=== PATIENT | male | born 1985 | race American Indian/Alaskan Native ===

== ENCOUNTER 2016-12-06 10:36 | Outpatient (CLI) | payer MEDICARE ==
[2016-12-06] MEDS ORDERED: XYLOCAINE TOPICAL 2% TP ONE ×2 (12:37→15:41)
== END 2016-12-06 10:37 | disposition home or self-care (01) ==
LOC: WOUND 10:36
PROVIDERS: ATTEND Internal Medicine
DX: I87.311 Chronic venous hypertension (idiopathic) with ulcer of right lower extremity (principal); L97.912 Non-pressure chronic ulcer of unspecified part of right lower leg with fat layer exposed; I10 Essential (primary) hypertension; I89.0 Lymphedema, not elsewhere classified; I87.2 Venous insufficiency (chronic) (peripheral)

== ENCOUNTER 2016-12-24 09:04 | Outpatient (CLI) | payer MEDICARE ==
[~2016-12-24 09:04] MED LIST: XYLOCAINE TOPICAL 2% TP ONE
[2016-12-24] MEDS ORDERED: XYLOCAINE TOPICAL 2% TP ONE (15:00)
== END 2016-12-24 09:05 | disposition home or self-care (01) ==
LOC: WOUND 09:04
PROVIDERS: ATTEND Podiatrist
DX: I87.311 Chronic venous hypertension (idiopathic) with ulcer of right lower extremity (principal); L97.912 Non-pressure chronic ulcer of unspecified part of right lower leg with fat layer exposed; I89.0 Lymphedema, not elsewhere classified; I87.2 Venous insufficiency (chronic) (peripheral)

== ENCOUNTER 2017-01-07 09:10 | Outpatient (CLI) | payer MEDICARE ==
[~2017-01-07 09:10] MED LIST changes: -XYLOCAINE TOPICAL 2% TP ONE; +XYLOCAINE TOPICAL 4% TP ONE
[2017-01-07] MEDS ORDERED: XYLOCAINE TOPICAL 4% TP ONE (09:15)
[2017-01-07] MEDS ORDERED: AD OINTMENT TP ONE (10:18)
== END 2017-01-07 09:11 | disposition home or self-care (01) ==
LOC: WOUND 09:10
PROVIDERS: ATTEND Podiatrist
DX: I87.311 Chronic venous hypertension (idiopathic) with ulcer of right lower extremity (principal); L97.812 Non-pressure chronic ulcer of other part of right lower leg with fat layer exposed; I89.0 Lymphedema, not elsewhere classified
CPT/HCPCS: 87075; 87116; A6250

== ENCOUNTER 2017-01-14 09:48 | Outpatient (CLI) | payer MEDICARE ==
[2017-01-14] MEDS ORDERED: XYLOCAINE TOPICAL 4% TP ONE ×2 (10:30→11:00)
[2017-01-14] MEDS ORDERED: AD OINTMENT TP ONE (11:04)
[2017-01-15] MEDS ORDERED: AD OINTMENT TP SCH (10:00)
== END 2017-01-14 09:49 | disposition home or self-care (01) ==
LOC: WOUND 09:48
PROVIDERS: ATTEND Podiatrist
DX: I87.311 Chronic venous hypertension (idiopathic) with ulcer of right lower extremity (principal); L97.812 Non-pressure chronic ulcer of other part of right lower leg with fat layer exposed; I89.0 Lymphedema, not elsewhere classified
CPT/HCPCS: A6250

== ENCOUNTER 2017-02-11 09:30 | Outpatient (CLI) | payer MEDICARE ==
[2017-02-11] MEDS ORDERED: XYLOCAINE TOPICAL 4% TP ONE ×2 (09:56→13:22)
[2017-02-11] MEDS ORDERED: AD OINTMENT TP ONE (10:27)
[2017-02-12] MEDS ORDERED: AD OINTMENT TP SCH (10:00)
== END 2017-02-11 09:31 | disposition home or self-care (01) ==
LOC: WOUND 09:30
PROVIDERS: ATTEND Podiatrist
DX: I87.311 Chronic venous hypertension (idiopathic) with ulcer of right lower extremity (principal); L97.812 Non-pressure chronic ulcer of other part of right lower leg with fat layer exposed; H53.8 Other visual disturbances
CPT/HCPCS: A6250

== ENCOUNTER 2017-02-18 10:34 | Outpatient (CLI) | payer MEDICARE ==
[2017-02-18] MEDS ORDERED: XYLOCAINE TOPICAL 4% TP ONE ×2 (10:35→14:50)
== END 2017-02-18 10:35 | disposition home or self-care (01) ==
LOC: WOUND 10:34
PROVIDERS: ATTEND Podiatrist
DX: I87.311 Chronic venous hypertension (idiopathic) with ulcer of right lower extremity (principal); L97.811 Non-pressure chronic ulcer of other part of right lower leg limited to breakdown of skin; L03.115 Cellulitis of right lower limb

== ENCOUNTER 2017-03-04 08:29 | Outpatient (CLI) | payer MEDICARE ==
[2017-03-04] MEDS ORDERED: XYLOCAINE TOPICAL 2% TP ONE ×2 (09:01→10:00)
== END 2017-03-04 08:30 | disposition home or self-care (01) ==
LOC: WOUND 08:29
PROVIDERS: ATTEND Podiatrist
DX: I87.311 Chronic venous hypertension (idiopathic) with ulcer of right lower extremity (principal); L97.812 Non-pressure chronic ulcer of other part of right lower leg with fat layer exposed

== ENCOUNTER 2017-09-03 08:17 | Outpatient (CLI) | payer MEDICARE ==
[2017-09-03] MEDS ORDERED: XYLOCAINE TOPICAL 4% TP ONE ×2 (08:53→08:56)
== END 2017-09-03 08:18 | disposition home or self-care (01) ==
LOC: WOUND 08:17
PROVIDERS: ATTEND Surgery
DX: I87.2 Venous insufficiency (chronic) (peripheral) (principal); L97.812 Non-pressure chronic ulcer of other part of right lower leg with fat layer exposed
CPT/HCPCS: 11042; 11045; G0463

== ENCOUNTER 2017-09-17 08:28 | Outpatient (CLI) | payer MEDICARE ==
[2017-09-17] MEDS ORDERED: XYLOCAINE TOPICAL 4% TP ONE ×2 (08:41→08:46)
== END 2017-09-17 08:29 | disposition home or self-care (01) ==
LOC: WOUND 08:28
PROVIDERS: ATTEND Surgery
DX: I87.2 Venous insufficiency (chronic) (peripheral) (principal); L97.812 Non-pressure chronic ulcer of other part of right lower leg with fat layer exposed

== ENCOUNTER 2017-10-03 08:48 | Outpatient (CLI) | payer MEDICARE ==
[2017-10-03] MEDS ORDERED: XYLOCAINE TOPICAL 2% TP ONE ×2 (09:22→09:41)
[2017-10-03] MEDS ORDERED: XYLOCAINE TOPICAL 4% TP ONE ×2 (09:22)
== END 2017-10-03 08:49 | disposition home or self-care (01) ==
LOC: WOUND 08:48
PROVIDERS: ATTEND Podiatrist
DX: I87.311 Chronic venous hypertension (idiopathic) with ulcer of right lower extremity (principal); L97.812 Non-pressure chronic ulcer of other part of right lower leg with fat layer exposed

== ENCOUNTER 2017-10-31 08:50 | Outpatient (CLI) | payer MEDICARE ==
[2017-10-31] MEDS ORDERED: XYLOCAINE TOPICAL 4% TP ONE ×2 (09:31→09:44)
[2017-10-31] MEDS ORDERED: XYLOCAINE TOPICAL 2% 5ML ONE (09:42)
[2017-10-31] MEDS ORDERED: XYLOCAINE TOPICAL 2% 5ML TP ONE (09:44)
== END 2017-10-31 08:51 | disposition home or self-care (01) ==
LOC: WOUND 08:50
PROVIDERS: ATTEND Podiatrist
DX: I87.311 Chronic venous hypertension (idiopathic) with ulcer of right lower extremity (principal); L97.812 Non-pressure chronic ulcer of other part of right lower leg with fat layer exposed

== ENCOUNTER 2017-12-26 10:00 | Outpatient (CLI) | payer MEDICARE ==
[2017-12-26] MEDS ORDERED: XYLOCAINE TOPICAL 4% TP ONE (10:24)
[2017-12-26] MEDS ORDERED: AD OINTMENT TP ONE (11:05)
[2017-12-27] MEDS ORDERED: AD OINTMENT TP SCH (10:00)
== END 2017-12-26 10:01 | disposition home or self-care (01) ==
LOC: WOUND 10:00
PROVIDERS: ATTEND Internal Medicine
DX: I87.311 Chronic venous hypertension (idiopathic) with ulcer of right lower extremity (principal); L97.212 Non-pressure chronic ulcer of right calf with fat layer exposed; L97.812 Non-pressure chronic ulcer of other part of right lower leg with fat layer exposed; E66.01 Morbid (severe) obesity due to excess calories; Z68.41 Body mass index [BMI] 40.0-44.9, adult
CPT/HCPCS: A6250

== ENCOUNTER 2018-01-02 10:10 | Outpatient (CLI) | payer MEDICARE ==
[2018-01-02] MEDS ORDERED: XYLOCAINE TOPICAL 4% TP ONE (11:00)
== END 2018-01-02 10:11 | disposition home or self-care (01) ==
LOC: WOUND 10:10
PROVIDERS: ATTEND Podiatrist
DX: I87.311 Chronic venous hypertension (idiopathic) with ulcer of right lower extremity (principal); L97.812 Non-pressure chronic ulcer of other part of right lower leg with fat layer exposed; E66.01 Morbid (severe) obesity due to excess calories; Z68.42 Body mass index [BMI] 45.0-49.9, adult

== ENCOUNTER 2018-01-16 09:46 | Outpatient (CLI) | payer MEDICARE ==
[2018-01-16] MEDS ORDERED: XYLOCAINE TOPICAL 4% TP ONE (10:03)
== END 2018-01-16 09:47 | disposition home or self-care (01) ==
LOC: WOUND 09:46
PROVIDERS: ATTEND Podiatrist
DX: L97.812 Non-pressure chronic ulcer of other part of right lower leg with fat layer exposed (principal); I87.311 Chronic venous hypertension (idiopathic) with ulcer of right lower extremity; E66.01 Morbid (severe) obesity due to excess calories; Z68.42 Body mass index [BMI] 45.0-49.9, adult

== ENCOUNTER 2018-01-30 10:16 | Outpatient (CLI) | payer MEDICARE ==
[2018-01-30] MEDS ORDERED: XYLOCAINE TOPICAL 4% TP ONE ×2 (10:28→14:00)
== END 2018-01-30 10:17 | disposition home or self-care (01) ==
LOC: WOUND 10:16
PROVIDERS: ATTEND Podiatrist
DX: L97.812 Non-pressure chronic ulcer of other part of right lower leg with fat layer exposed (principal); L97.821 Non-pressure chronic ulcer of other part of left lower leg limited to breakdown of skin; I87.311 Chronic venous hypertension (idiopathic) with ulcer of right lower extremity

== ENCOUNTER 2018-02-13 09:38 | Outpatient (CLI) | payer MEDICARE ==
[2018-02-13] MEDS ORDERED: XYLOCAINE TOPICAL 4% TP ONE ×2 (10:16→10:43)
[2018-02-13] MEDS ORDERED: SODIUM CHLORIDE FLUSH SYRINGE 10 ML IV ONE ×2 (10:44→11:01)
== END 2018-02-13 09:39 | disposition home or self-care (01) ==
LOC: WOUND 09:38
PROVIDERS: ATTEND Podiatrist
DX: I87.311 Chronic venous hypertension (idiopathic) with ulcer of right lower extremity (principal); L97.812 Non-pressure chronic ulcer of other part of right lower leg with fat layer exposed; L97.822 Non-pressure chronic ulcer of other part of left lower leg with fat layer exposed
CPT/HCPCS: 11042; 15271; 15272; Q4158

== ENCOUNTER 2018-02-17 14:10 | Outpatient (CLI) | payer MEDICARE | END 2018-02-17 14:11 | disposition home or self-care (01) | LOC: WOUND 14:10 | PROVIDERS: ATTEND Surgery | DX: I87.311 Chronic venous hypertension (idiopathic) with ulcer of right lower extremity (principal); L97.211 Non-pressure chronic ulcer of right calf limited to breakdown of skin; L97.812 Non-pressure chronic ulcer of other part of right lower leg with fat layer exposed; L97.822 Non-pressure chronic ulcer of other part of left lower leg with fat layer exposed | CPT/HCPCS: 99214; G0463 ==

== ENCOUNTER 2018-02-20 09:20 | Outpatient (CLI) | payer MEDICARE ==
[2018-02-20] MEDS ORDERED: XYLOCAINE TOPICAL 4% TP ONE ×2 (10:23→11:13)
[2018-02-20] MEDS ORDERED: SODIUM CHLORIDE FLUSH SYRINGE 10 ML IV ONE (11:06)
[2018-02-20] MEDS ORDERED: AD OINTMENT TP ONE (11:59)
[2018-02-21] MEDS ORDERED: AD OINTMENT TP SCH (10:00)
== END 2018-02-20 09:21 | disposition home or self-care (01) ==
LOC: WOUND 09:20
PROVIDERS: ATTEND Podiatrist
DX: I87.311 Chronic venous hypertension (idiopathic) with ulcer of right lower extremity (principal); L97.822 Non-pressure chronic ulcer of other part of left lower leg with fat layer exposed; L97.211 Non-pressure chronic ulcer of right calf limited to breakdown of skin; L97.812 Non-pressure chronic ulcer of other part of right lower leg with fat layer exposed
CPT/HCPCS: 11042; 11045; 15271; 15272; Q4158; 29581; A6250

== ENCOUNTER 2018-02-27 09:28 | Outpatient (CLI) | payer MEDICARE ==
[2018-02-27] MEDS ORDERED: XYLOCAINE TOPICAL 4% TP ONE ×6 (10:29→19:00)
[2018-02-27] MEDS ORDERED: SODIUM CHLORIDE FLUSH SYRINGE 10 ML IV ONE ×2 (10:42→11:12)
[2018-02-27] MEDS ORDERED: DAKIN'S FULL STRENGTH TP ONE (11:28)
[2018-02-27] MEDS ORDERED: DAKIN'S FULL STRENGTH ONE (19:00)
== END 2018-02-27 09:29 | disposition home or self-care (01) ==
LOC: WOUND 09:28
PROVIDERS: ATTEND Podiatrist
DX: I87.313 Chronic venous hypertension (idiopathic) with ulcer of bilateral lower extremity (principal); L97.822 Non-pressure chronic ulcer of other part of left lower leg with fat layer exposed; L97.211 Non-pressure chronic ulcer of right calf limited to breakdown of skin; L97.812 Non-pressure chronic ulcer of other part of right lower leg with fat layer exposed; E66.3 Overweight; Z68.42 Body mass index [BMI] 45.0-49.9, adult

== ENCOUNTER 2018-03-06 09:43 | Outpatient (CLI) | payer MEDICARE ==
[~2018-03-06 09:43] MED LIST changes: +DAKIN'S FULL STRENGTH ONE
[2018-03-06] MEDS ORDERED: XYLOCAINE TOPICAL 4% TP ONE (09:56)
[2018-03-06] MEDS ORDERED: DAKIN'S FULL STRENGTH ONE (10:29)
== END 2018-03-06 09:44 | disposition home or self-care (01) ==
LOC: WOUND 09:43
PROVIDERS: ATTEND Podiatrist
DX: I87.313 Chronic venous hypertension (idiopathic) with ulcer of bilateral lower extremity (principal); L97.822 Non-pressure chronic ulcer of other part of left lower leg with fat layer exposed; L97.211 Non-pressure chronic ulcer of right calf limited to breakdown of skin; L97.812 Non-pressure chronic ulcer of other part of right lower leg with fat layer exposed; E66.3 Overweight; Z68.42 Body mass index [BMI] 45.0-49.9, adult

== ENCOUNTER 2018-03-13 09:45 | Outpatient (CLI) | payer MEDICARE ==
[2018-03-13] MEDS ORDERED: XYLOCAINE TOPICAL 4% TP ONE ×2 (10:16→10:36)
[2018-03-13] MEDS ORDERED: SODIUM CHLORIDE FLUSH SYRINGE 10 ML IV ONE ×2 (10:32→10:39)
[2018-03-13] MEDS ORDERED: AD OINTMENT TP ONE (11:22)
[2018-03-14] MEDS ORDERED: AD OINTMENT TP SCH (10:00)
== END 2018-03-13 09:46 | disposition home or self-care (01) ==
LOC: WOUND 09:45
PROVIDERS: ATTEND Podiatrist
DX: I87.313 Chronic venous hypertension (idiopathic) with ulcer of bilateral lower extremity (principal); L97.812 Non-pressure chronic ulcer of other part of right lower leg with fat layer exposed; L97.822 Non-pressure chronic ulcer of other part of left lower leg with fat layer exposed; L97.211 Non-pressure chronic ulcer of right calf limited to breakdown of skin; E66.3 Overweight
CPT/HCPCS: 11042; 15271; 15272; 29581; Q4158; A6250

== ENCOUNTER 2018-03-17 13:30 | Outpatient (CLI) | payer MEDICARE | END 2018-03-17 13:31 | disposition home or self-care (01) | LOC: WOUND 13:30 | PROVIDERS: ATTEND Surgery | DX: I87.313 Chronic venous hypertension (idiopathic) with ulcer of bilateral lower extremity (principal); L97.812 Non-pressure chronic ulcer of other part of right lower leg with fat layer exposed; L97.822 Non-pressure chronic ulcer of other part of left lower leg with fat layer exposed; E66.3 Overweight | CPT/HCPCS: 29581; G0463 ==

== ENCOUNTER 2018-03-20 09:40 | Outpatient (CLI) | payer MEDICARE ==
[2018-03-20] MEDS ORDERED: XYLOCAINE TOPICAL 4% TP ONE (10:03)
[2018-03-20] MEDS ORDERED: SODIUM CHLORIDE FLUSH SYRINGE 10 ML IV ONE (10:31)
== END 2018-03-20 09:41 | disposition home or self-care (01) ==
LOC: WOUND 09:40
PROVIDERS: ATTEND Podiatrist
DX: I87.313 Chronic venous hypertension (idiopathic) with ulcer of bilateral lower extremity (principal); L97.212 Non-pressure chronic ulcer of right calf with fat layer exposed; L97.822 Non-pressure chronic ulcer of other part of left lower leg with fat layer exposed
CPT/HCPCS: 11042; 15271; 15272; Q4158; 15275; 15276

== ENCOUNTER 2018-03-24 13:46 | Outpatient (CLI) | payer MEDICARE | END 2018-03-24 13:47 | disposition home or self-care (01) | LOC: WOUND 13:46 | PROVIDERS: ATTEND Surgery | DX: I87.313 Chronic venous hypertension (idiopathic) with ulcer of bilateral lower extremity (principal); L97.812 Non-pressure chronic ulcer of other part of right lower leg with fat layer exposed; L97.822 Non-pressure chronic ulcer of other part of left lower leg with fat layer exposed; L97.211 Non-pressure chronic ulcer of right calf limited to breakdown of skin; E66.3 Overweight | CPT/HCPCS: 29581 ==

== ENCOUNTER 2018-03-27 09:45 | Outpatient (CLI) | payer MEDICARE ==
[2018-03-27] MEDS ORDERED: XYLOCAINE TOPICAL 4% TP ONE (11:00)
== END 2018-03-27 09:46 | disposition home or self-care (01) ==
LOC: WOUND 09:45
PROVIDERS: ATTEND Surgery
DX: I87.313 Chronic venous hypertension (idiopathic) with ulcer of bilateral lower extremity (principal); L97.812 Non-pressure chronic ulcer of other part of right lower leg with fat layer exposed; L97.822 Non-pressure chronic ulcer of other part of left lower leg with fat layer exposed; L97.211 Non-pressure chronic ulcer of right calf limited to breakdown of skin; E66.3 Overweight; Z68.42 Body mass index [BMI] 45.0-49.9, adult
CPT/HCPCS: 87075; 87076; 87116; 87186

== ENCOUNTER 2018-04-03 09:45 | Outpatient (CLI) | payer MEDICARE ==
[2018-04-03] MEDS ORDERED: XYLOCAINE TOPICAL 4% TP ONE ×3 (10:03→10:07)
== END 2018-04-03 09:46 | disposition home or self-care (01) ==
LOC: WOUND 09:45
PROVIDERS: ATTEND Surgery
DX: I87.313 Chronic venous hypertension (idiopathic) with ulcer of bilateral lower extremity (principal); L97.212 Non-pressure chronic ulcer of right calf with fat layer exposed; L97.822 Non-pressure chronic ulcer of other part of left lower leg with fat layer exposed; S81.001D Unspecified open wound, right knee, subsequent encounter; E66.3 Overweight; Z68.42 Body mass index [BMI] 45.0-49.9, adult; X58.XXXD Exposure to other specified factors, subsequent encounter
CPT/HCPCS: 99214; G0463

== ENCOUNTER 2018-04-10 09:51 | Outpatient (CLI) | payer MEDICARE ==
[2018-04-10] MEDS ORDERED: XYLOCAINE TOPICAL 4% TP ONE ×2 (09:55→11:00)
== END 2018-04-10 09:52 | disposition home or self-care (01) ==
LOC: WOUND 09:51
PROVIDERS: ATTEND Surgery
DX: I87.313 Chronic venous hypertension (idiopathic) with ulcer of bilateral lower extremity (principal); L97.212 Non-pressure chronic ulcer of right calf with fat layer exposed; L97.822 Non-pressure chronic ulcer of other part of left lower leg with fat layer exposed; S81.001D Unspecified open wound, right knee, subsequent encounter; E66.3 Overweight; Z68.42 Body mass index [BMI] 45.0-49.9, adult; X58.XXXD Exposure to other specified factors, subsequent encounter

== ENCOUNTER 2018-04-24 09:47 | Outpatient (CLI) | payer MEDICARE ==
[2018-04-24] MEDS ORDERED: XYLOCAINE TOPICAL 4% TP ONE (10:18)
== END 2018-04-24 09:48 | disposition home or self-care (01) ==
LOC: WOUND 09:47
PROVIDERS: ATTEND Surgery
DX: I87.313 Chronic venous hypertension (idiopathic) with ulcer of bilateral lower extremity (principal); L97.822 Non-pressure chronic ulcer of other part of left lower leg with fat layer exposed; L97.211 Non-pressure chronic ulcer of right calf limited to breakdown of skin
CPT/HCPCS: 99215; G0463

== ENCOUNTER 2018-05-01 10:10 | Outpatient (CLI) | payer MEDICARE ==
[2018-05-01] MEDS ORDERED: XYLOCAINE TOPICAL 4% TP ONE ×4 (10:16→10:50)
[2018-05-01] MEDS ORDERED: AD OINTMENT TP ONE (11:03)
[2018-05-02] MEDS ORDERED: AD OINTMENT TP SCH (10:00)
== END 2018-05-01 10:11 | disposition home or self-care (01) ==
LOC: WOUND 10:10
PROVIDERS: ATTEND Surgery
DX: I87.313 Chronic venous hypertension (idiopathic) with ulcer of bilateral lower extremity (principal); L97.822 Non-pressure chronic ulcer of other part of left lower leg with fat layer exposed; L97.211 Non-pressure chronic ulcer of right calf limited to breakdown of skin; S81.001D Unspecified open wound, right knee, subsequent encounter; X58.XXXD Exposure to other specified factors, subsequent encounter
CPT/HCPCS: A6250

== ENCOUNTER 2018-06-05 09:43 | Outpatient (CLI) | payer MEDICARE ==
[2018-06-05] MEDS ORDERED: XYLOCAINE TOPICAL 4% TP ONE (09:55)
== END 2018-06-05 09:44 | disposition home or self-care (01) ==
LOC: WOUND 09:43
PROVIDERS: ATTEND Surgery
DX: I87.313 Chronic venous hypertension (idiopathic) with ulcer of bilateral lower extremity (principal); L97.812 Non-pressure chronic ulcer of other part of right lower leg with fat layer exposed; L97.822 Non-pressure chronic ulcer of other part of left lower leg with fat layer exposed; Z68.42 Body mass index [BMI] 45.0-49.9, adult
CPT/HCPCS: 99215; G0463

== ENCOUNTER 2018-08-21 09:24 | Outpatient (CLI) | payer MEDICARE ==
[2018-08-21] MEDS ORDERED: XYLOCAINE TOPICAL 4% TP ONE ×2 (09:38→09:57)
[2018-08-21] MEDS ORDERED: AD OINTMENT TP ONE (09:47)
[2018-08-21] MEDS ORDERED: AD OINTMENT TP PRN (09:57)
== END 2018-08-21 09:25 | disposition home or self-care (01) ==
LOC: WOUND 09:24
PROVIDERS: ATTEND Surgery
DX: I87.313 Chronic venous hypertension (idiopathic) with ulcer of bilateral lower extremity (principal); L97.812 Non-pressure chronic ulcer of other part of right lower leg with fat layer exposed; L97.822 Non-pressure chronic ulcer of other part of left lower leg with fat layer exposed; Z68.42 Body mass index [BMI] 45.0-49.9, adult
CPT/HCPCS: A6250

== ENCOUNTER 2018-12-04 10:00 | Outpatient (CLI) | payer MEDICARE ==
[2018-12-04] MEDS ORDERED: XYLOCAINE TOPICAL 4% TP ONE (10:30)
[2018-12-04] MEDS ORDERED: AD OINTMENT TP PRN (10:30)
== END 2018-12-04 10:01 | disposition home or self-care (01) ==
LOC: WOUND 10:00
PROVIDERS: ATTEND Surgery
DX: I87.311 Chronic venous hypertension (idiopathic) with ulcer of right lower extremity (principal); L97.822 Non-pressure chronic ulcer of other part of left lower leg with fat layer exposed
CPT/HCPCS: A6250

== ENCOUNTER 2019-01-15 13:23 | Outpatient (CLI) | payer MEDICARE ==
[2019-01-15] MEDS ORDERED: AD OINTMENT TP PRN (13:39)
[2019-01-15] MEDS ORDERED: SILVER NITRATE TP ONE (13:39)
[2019-01-15] MEDS ORDERED: XYLOCAINE TOPICAL 4% TP ONE (13:39)
== END 2019-01-15 13:24 | disposition home or self-care (01) ==
LOC: WOUND 13:23
PROVIDERS: ATTEND Surgery
DX: I87.313 Chronic venous hypertension (idiopathic) with ulcer of bilateral lower extremity (principal); L97.822 Non-pressure chronic ulcer of other part of left lower leg with fat layer exposed; L97.812 Non-pressure chronic ulcer of other part of right lower leg with fat layer exposed
CPT/HCPCS: A6250

== ENCOUNTER 2019-01-29 09:24 | Outpatient (CLI) | payer MEDICARE ==
[2019-01-29] MEDS ORDERED: AD OINTMENT TP PRN (11:00)
[2019-01-29] MEDS ORDERED: XYLOCAINE TOPICAL 4% TP ONE (11:00)
== END 2019-01-29 09:25 | disposition home or self-care (01) ==
LOC: WOUND 09:24
PROVIDERS: ATTEND Surgery
DX: I87.313 Chronic venous hypertension (idiopathic) with ulcer of bilateral lower extremity (principal); L97.812 Non-pressure chronic ulcer of other part of right lower leg with fat layer exposed; L97.822 Non-pressure chronic ulcer of other part of left lower leg with fat layer exposed; E66.3 Overweight; I87.2 Venous insufficiency (chronic) (peripheral); Z68.42 Body mass index [BMI] 45.0-49.9, adult

== ENCOUNTER 2019-03-19 09:10 | Outpatient (CLI) | payer MEDICARE ==
[2019-03-19] MEDS ORDERED: AD OINTMENT TP PRN (09:23)
[2019-03-19] MEDS ORDERED: XYLOCAINE TOPICAL 4% TP ONE (09:23)
== END 2019-03-19 09:11 | disposition home or self-care (01) ==
LOC: WOUND 09:10
PROVIDERS: ATTEND Surgery
DX: I87.313 Chronic venous hypertension (idiopathic) with ulcer of bilateral lower extremity (principal); L97.812 Non-pressure chronic ulcer of other part of right lower leg with fat layer exposed; L97.822 Non-pressure chronic ulcer of other part of left lower leg with fat layer exposed; I87.2 Venous insufficiency (chronic) (peripheral); E66.3 Overweight; Z68.42 Body mass index [BMI] 45.0-49.9, adult
CPT/HCPCS: A6250

== ENCOUNTER 2019-04-30 10:11 | Outpatient (CLI) | payer MEDICARE | END 2019-04-30 10:12 | disposition home or self-care (01) | LOC: WOUND 10:11 | PROVIDERS: ATTEND Surgery | DX: L97.811 Non-pressure chronic ulcer of other part of right lower leg limited to breakdown of skin (principal); I87.2 Venous insufficiency (chronic) (peripheral) ==

== ENCOUNTER 2019-05-14 09:36 | Outpatient (CLI) | payer MEDICARE ==
[2019-05-14] MEDS ORDERED: AD OINTMENT TP PRN (10:00)
[2019-05-14] MEDS ORDERED: SILVER NITRATE TP ONE (10:00)
[2019-05-14] MEDS ORDERED: XYLOCAINE TOPICAL 4% TP ONE (10:00)
== END 2019-05-14 09:37 | disposition home or self-care (01) ==
LOC: WOUND 09:36
PROVIDERS: ATTEND Surgery
DX: S81.801D Unspecified open wound, right lower leg, subsequent encounter (principal); I87.2 Venous insufficiency (chronic) (peripheral); X58.XXXD Exposure to other specified factors, subsequent encounter
CPT/HCPCS: A6250

== ENCOUNTER 2019-06-04 11:08 | Outpatient (CLI) | payer MEDICARE ==
[2019-06-04] MEDS ORDERED: XYLOCAINE TOPICAL 4% TP ONE (11:17)
[2019-06-04] MEDS ORDERED: AD OINTMENT TP ONE (11:46)
== END 2019-06-04 11:09 | disposition home or self-care (01) ==
LOC: WOUND 11:08
PROVIDERS: ATTEND Surgery
DX: S81.801D Unspecified open wound, right lower leg, subsequent encounter (principal); I87.2 Venous insufficiency (chronic) (peripheral); X58.XXXD Exposure to other specified factors, subsequent encounter
CPT/HCPCS: A6250

== ENCOUNTER 2019-06-18 09:31 | Outpatient (CLI) | payer MEDICARE ==
[2019-06-18] MEDS ORDERED: AD OINTMENT TP PRN (10:16)
[2019-06-18] MEDS ORDERED: XYLOCAINE TOPICAL 4% TP ONE (10:16)
== END 2019-06-18 09:32 | disposition home or self-care (01) ==
LOC: WOUND 09:31
PROVIDERS: ATTEND Surgery
DX: S81.801D Unspecified open wound, right lower leg, subsequent encounter (principal); I87.2 Venous insufficiency (chronic) (peripheral); X58.XXXD Exposure to other specified factors, subsequent encounter
CPT/HCPCS: A6250

== ENCOUNTER 2019-07-09 09:42 | Outpatient (CLI) | payer MEDICARE ==
[2019-07-09] MEDS ORDERED: XYLOCAINE TOPICAL 4% TP ONE (09:46)
== END 2019-07-09 09:43 | disposition home or self-care (01) ==
LOC: WOUND 09:42
PROVIDERS: ATTEND Surgery
DX: S81.801D Unspecified open wound, right lower leg, subsequent encounter (principal); I87.2 Venous insufficiency (chronic) (peripheral); X58.XXXD Exposure to other specified factors, subsequent encounter

== ENCOUNTER 2019-07-16 10:08 | Outpatient (CLI) | payer MEDICARE | END 2019-07-16 10:09 | disposition home or self-care (01) | LOC: WOUND 10:08 | PROVIDERS: ATTEND Surgery | DX: I87.311 Chronic venous hypertension (idiopathic) with ulcer of right lower extremity (principal); L97.812 Non-pressure chronic ulcer of other part of right lower leg with fat layer exposed; I87.2 Venous insufficiency (chronic) (peripheral) | CPT/HCPCS: 29581 ==

== ENCOUNTER 2019-07-27 11:29 | Outpatient (CLI) | payer MEDICARE | END 2019-07-27 11:30 | disposition home or self-care (01) | LOC: WOUND 11:29 | PROVIDERS: ATTEND Surgery | DX: I87.311 Chronic venous hypertension (idiopathic) with ulcer of right lower extremity (principal); L97.812 Non-pressure chronic ulcer of other part of right lower leg with fat layer exposed | CPT/HCPCS: 29581 ==

== ENCOUNTER 2019-07-30 10:09 | Outpatient (CLI) | payer MEDICARE ==
[2019-07-30] MEDS ORDERED: XYLOCAINE TOPICAL 4% TP ONE (10:24)
== END 2019-07-30 10:10 | disposition home or self-care (01) ==
LOC: WOUND 10:09
PROVIDERS: ATTEND Surgery
DX: I87.311 Chronic venous hypertension (idiopathic) with ulcer of right lower extremity (principal); L97.812 Non-pressure chronic ulcer of other part of right lower leg with fat layer exposed

== ENCOUNTER 2019-09-03 10:06 | Outpatient (CLI) | payer MEDICARE ==
[2019-09-03] MEDS ORDERED: VITAMIN A & D OINT 56.7 GM TP PRN (10:14)
[2019-09-03] MEDS ORDERED: SILVER NITRATE APPLICATOR 1 EA TP ONE (11:14)
[2019-09-03] MEDS ORDERED: LIDOCAINE (4%) 40 MG/ML TOPICAL SOLN 50 ML BOTTLE TP ONE (11:14)
== END 2019-09-03 10:07 | disposition home or self-care (01) ==
LOC: WOUND 10:06
PROVIDERS: ATTEND Surgery
DX: I87.311 Chronic venous hypertension (idiopathic) with ulcer of right lower extremity (principal); L97.812 Non-pressure chronic ulcer of other part of right lower leg with fat layer exposed
CPT/HCPCS: A6250

== ENCOUNTER 2019-10-24 20:10 | Emergency (ER) | payer MEDICARE ==
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
--- NOTE | 2019-10-24 22:45 | XRay Report ---
CHEST 2 VIEWS INDICATION / CLINICAL INFORMATION: COUGH AND CHEST PAIN. COMPARISON: Chest radiograph 06/08/2015 FINDINGS: SUPPORT DEVICES: None. HEART / MEDIASTINUM: No significant abnormality. LUNGS / PLEURA: No significant pulmonary or pleural abnormality. No pneumothorax. ADDITIONAL FINDINGS: No significant additional findings. IMPRESSION: 1. No acute findings. Signer Name: Ora Robbins MD Signed: 10/24/2019 10:41 PM Workstation Name: [id number]
[2019-10-24 22:57] LABS: Basophils # (Auto) 0.1 K/mm3 (0.0-0.1); Basophils % (Auto) 0.5 % (0.0-1.8); Eosinophils # (Auto) 0.2 K/mm3 (0.0-0.4); Eosinophils % (Auto) 1.8 % (0.0-4.3); Hematocrit 45.9 % (35.5-45.6); Hemoglobin 15.1 gm/dl (11.8-15.2); Lymphocytes # (Auto) 1.6 K/mm3 (1.2-5.4); Lymphocytes % (Auto) 16.3 % (13.4-35.0); Mean Corpuscular HGB Conc 33 % (32-34); Mean Corpuscular Volume 92 fl (84-94); Monocytes % (Auto) 10.1 % (0.0-7.3); Platelet Count 253 K/mm3 (140-440); Red Blood Count 5.01 M/mm3 (3.65-5.03); Red Cell Distribution Width 17.6 % (13.2-15.2)
[2019-10-24 23:16] LABS: Alanine Aminotransferase 90 units/L (7-56); Albumin 4.3 g/dL (3.9-5); BUN/Creatinine Ratio 11; Blood Urea Nitrogen 9 mg/dL (9-20); Calcium 9.7 mg/dL (8.4-10.2); Hemolysis Index 9
[2019-10-24] MEDS ORDERED: methylPREDNISolone Sod Succinate 125 MG/2 ML INJ IV ONE (23:54)
[2019-10-24] MEDS ORDERED: KETOROLAC 30 MG/1 ML INJ IV ONE (23:54)
[2019-10-24] MEDS ORDERED: IPRATROPIUM/ALBUTEROL SULFATE 3 ML AMPUL.NEB IH ONE (23:55)
[2019-10-24] MEDS ORDERED: SODIUM CHLORIDE 0.9% 1000 ML 1,000 ML IV ONE (23:55)
--- NOTE | 2019-10-25 00:26 | Cat Scan Report ---
CT ABDOMEN AND PELVIS WITHOUT CONTRAST INDICATION / CLINICAL INFORMATION: Left flank pain. TECHNIQUE: Axial CT images were obtained through the abdomen and pelvis without IV contrast. All CT scans at [facility] location are performed using CT dose reduction for ALARA by means of automated exposure control. COMPARISON: None available. FINDINGS: LOWER CHEST: No significant abnormality. LIVER: Fatty liver. GALLBLADDER: No significant abnormality. BILE DUCTS: No significant abnormality. PANCREAS: No significant abnormality. SPLEEN: No significant abnormality. ADRENALS: No significant abnormality. RIGHT KIDNEY and URETER: No significant abnormality. LEFT KIDNEY and URETER: No significant abnormality. STOMACH and SMALL BOWEL: No significant abnormality. COLON: No significant abnormality. APPENDIX: No significant abnormality. PERITONEUM: No free fluid. No free air. No fluid collection. LYMPH NODES: No significant adenopathy. AORTA and ARTERIES: No significant abnormality. IVC and VEINS: No significant abnormality. URINARY BLADDER: No significant abnormality. REPRODUCTIVE ORGANS: No significant abnormality. ADDITIONAL FINDINGS: None. SKELETAL SYSTEM: No significant abnormality. IMPRESSION: Fatty liver. No acute findings. Signer Name: Darrell Arguelles MD Signed: 10/25/2019 12:22 AM Workstation Name: [id number]
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
[2019-10-25 03:51] VITALS: BP 150/91
== END 2019-10-25 02:31 | disposition home or self-care (01) ==
LOC: ED 20:10
DX: J06.9 Acute upper respiratory infection, unspecified (principal); J20.9 Acute bronchitis, unspecified; J01.90 Acute sinusitis, unspecified; R42 Dizziness and giddiness; Z79.899 Other long term (current) drug therapy
CPT/HCPCS: 36415; 71046; 74176; 80053; 84484; 85025; 93005; 93010; 94640; 96361; 96374; 96375; 99284; J1885; J2930; J7030

== ENCOUNTER 2019-10-29 08:58 | Outpatient (CLI) | payer MEDICARE ==
[2019-10-29] MEDS ORDERED: LIDOCAINE (4%) 40 MG/ML TOPICAL SOLN 50 ML BOTTLE TP ONE (09:30)
== END 2019-10-29 08:59 | disposition home or self-care (01) ==
LOC: WOUND 08:58
PROVIDERS: ATTEND Surgery
DX: I87.311 Chronic venous hypertension (idiopathic) with ulcer of right lower extremity (principal); L97.812 Non-pressure chronic ulcer of other part of right lower leg with fat layer exposed; I87.2 Venous insufficiency (chronic) (peripheral)

== ENCOUNTER 2019-12-17 09:00 | Outpatient (CLI) | payer MEDICARE ==
[2019-12-17] MEDS ORDERED: LIDOCAINE (4%) 40 MG/ML TOPICAL SOLN 50 ML BOTTLE TP ONE ×2 (09:30→10:30)
[2019-12-17] MEDS ORDERED: LIDOCAINE (4%) 40 MG/ML TOPICAL SOLN 50 ML BOTTLE TP SCH (09:30)
[2019-12-17] MEDS ORDERED: SODIUM CHLORIDE 0.9% IRR 500 ML BOTTLE IR ONE (10:45)
[2019-12-17] MEDS ORDERED: VITAMIN A & D OINT 56.7 GM TP SCH (11:00)
== END 2019-12-17 09:01 | disposition home or self-care (01) ==
LOC: WOUND 09:00
PROVIDERS: ATTEND Surgery
DX: I87.311 Chronic venous hypertension (idiopathic) with ulcer of right lower extremity (principal); L97.812 Non-pressure chronic ulcer of other part of right lower leg with fat layer exposed
CPT/HCPCS: A6250

== ENCOUNTER 2020-01-07 10:07 | Outpatient (CLI) | payer MEDICARE ==
[2020-01-07] MEDS ORDERED: LIDOCAINE (4%) 40 MG/ML TOPICAL SOLN 50 ML BOTTLE TP ONE (10:26)
[2020-01-07] MEDS ORDERED: VITAMIN A & D OINT 56.7 GM TP SCH (11:00)
== END 2020-01-07 10:08 | disposition home or self-care (01) ==
LOC: WOUND 10:07
PROVIDERS: ATTEND Surgery
DX: I87.311 Chronic venous hypertension (idiopathic) with ulcer of right lower extremity (principal); L97.812 Non-pressure chronic ulcer of other part of right lower leg with fat layer exposed; I87.2 Venous insufficiency (chronic) (peripheral)
CPT/HCPCS: A6250

== ENCOUNTER 2020-01-14 10:06 | Outpatient (CLI) | payer MEDICARE ==
[2020-01-14] MEDS ORDERED: LIDOCAINE (4%) 40 MG/ML TOPICAL SOLN 50 ML BOTTLE TP ONE (10:30)
== END 2020-01-14 10:07 | disposition home or self-care (01) ==
LOC: WOUND 10:06
PROVIDERS: ATTEND Surgery
DX: I87.311 Chronic venous hypertension (idiopathic) with ulcer of right lower extremity (principal); L97.311 Non-pressure chronic ulcer of right ankle limited to breakdown of skin; I87.2 Venous insufficiency (chronic) (peripheral)
CPT/HCPCS: 99213; G0463

== ENCOUNTER 2020-02-04 10:31 | Outpatient (CLI) | payer MEDICARE ==
[2020-02-04] MEDS ORDERED: LIDOCAINE (4%) 40 MG/ML TOPICAL SOLN 50 ML BOTTLE TP ONE (11:30)
[2020-02-04] MEDS ORDERED: VITAMIN A & D OINT 56.7 GM TP SCH (12:00)
== END 2020-02-04 10:32 | disposition home or self-care (01) ==
LOC: WOUND 10:31
PROVIDERS: ATTEND Surgery
DX: I87.311 Chronic venous hypertension (idiopathic) with ulcer of right lower extremity (principal); L97.311 Non-pressure chronic ulcer of right ankle limited to breakdown of skin

== ENCOUNTER 2020-02-18 10:32 | Outpatient (CLI) | payer MEDICARE ==
[2020-02-18] MEDS ORDERED: LIDOCAINE (4%) 40 MG/ML TOPICAL SOLN 50 ML BOTTLE TP ONE (11:00)
[2020-02-18] MEDS ORDERED: VITAMIN A & D OINT 56.7 GM TP SCH (11:00)
== END 2020-02-18 10:33 | disposition home or self-care (01) ==
LOC: WOUND 10:32
PROVIDERS: ATTEND Surgery
DX: I87.311 Chronic venous hypertension (idiopathic) with ulcer of right lower extremity (principal); L97.812 Non-pressure chronic ulcer of other part of right lower leg with fat layer exposed; S81.001D Unspecified open wound, right knee, subsequent encounter; I87.2 Venous insufficiency (chronic) (peripheral); X58.XXXD Exposure to other specified factors, subsequent encounter

== ENCOUNTER 2020-04-10 12:00 | Outpatient (CLI) | payer MEDICARE ==
[2020-04-10] MEDS ORDERED: LIDOCAINE (4%) 40 MG/ML TOPICAL SOLN 50 ML BOTTLE TP ONE (14:12)
[2020-04-10] MEDS ORDERED: VITAMIN A & D OINT 56.7 GM TP ONE (14:55)
== END 2020-04-10 12:01 | disposition home or self-care (01) ==
LOC: WOUND 12:00
PROVIDERS: ATTEND Surgery
DX: I87.311 Chronic venous hypertension (idiopathic) with ulcer of right lower extremity (principal); L97.812 Non-pressure chronic ulcer of other part of right lower leg with fat layer exposed; S81.001D Unspecified open wound, right knee, subsequent encounter; X58.XXXD Exposure to other specified factors, subsequent encounter
CPT/HCPCS: A6250

== ENCOUNTER 2020-04-24 14:03 | Outpatient (CLI) | payer MEDICARE ==
[2020-04-24] MEDS ORDERED: LIDOCAINE (4%) 40 MG/ML TOPICAL SOLN 50 ML BOTTLE TP ONE (14:09)
== END 2020-04-24 14:04 | disposition home or self-care (01) ==
LOC: WOUND 14:03
PROVIDERS: ATTEND Surgery
DX: I87.311 Chronic venous hypertension (idiopathic) with ulcer of right lower extremity (principal); L97.812 Non-pressure chronic ulcer of other part of right lower leg with fat layer exposed; S81.001D Unspecified open wound, right knee, subsequent encounter; X58.XXXD Exposure to other specified factors, subsequent encounter

== ENCOUNTER 2020-06-13 06:07 | Emergency (ER) | payer MEDICARE ==
[2020-06-13] MEDS ORDERED: dexAMETHasone 20 MG/5 ML VIAL IV ONE (08:37)
[2020-06-13 08:43] VITALS: BP 138/84
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
== END 2020-06-13 09:50 | disposition home or self-care (01) ==
LOC: ED 06:07
DX: H10.13 Acute atopic conjunctivitis, bilateral (principal); L25.9 Unspecified contact dermatitis, unspecified cause
CPT/HCPCS: 82962; 96374; 99283

== ENCOUNTER 2021-01-15 08:33 | Outpatient (CLI) | payer OTHER ==
[2021-01-15] MEDS ORDERED: LIDOCAINE (4%) 40 MG/ML TOPICAL SOLN 50 ML BOTTLE TP ONE (08:41)
[2021-01-15] MEDS ORDERED: SODIUM CHLORIDE 0.9% IRR 500 ML BOTTLE IR NR (10:57)
== END 2021-01-15 08:34 | disposition home or self-care (01) ==
LOC: WOUND 08:33
PROVIDERS: ATTEND Surgery
DX: S81.001A Unspecified open wound, right knee, initial encounter (principal); S81.801A Unspecified open wound, right lower leg, initial encounter; L97.212 Non-pressure chronic ulcer of right calf with fat layer exposed; L97.812 Non-pressure chronic ulcer of other part of right lower leg with fat layer exposed; I87.2 Venous insufficiency (chronic) (peripheral); I89.0 Lymphedema, not elsewhere classified; X58.XXXA Exposure to other specified factors, initial encounter; Y93.89 Activity, other specified; Y92.89 Other specified places as the place of occurrence of the external cause; Y99.8 Other external cause status
CPT/HCPCS: 11042; 11045; G0463; 99204; 99214

== ENCOUNTER 2021-01-29 08:39 | Outpatient (CLI) | payer MEDICARE ==
[2021-01-29] MEDS ORDERED: LIDOCAINE (4%) 40 MG/ML TOPICAL SOLN 50 ML BOTTLE TP ONE (08:57)
[2021-01-29] MEDS ORDERED: VITAMIN A & D OINT 56.7 GM TP SCH (10:00)
== END 2021-01-29 08:40 | disposition home or self-care (01) ==
LOC: WOUND 08:39
PROVIDERS: ATTEND Surgery
DX: S81.001D Unspecified open wound, right knee, subsequent encounter (principal); S81.801D Unspecified open wound, right lower leg, subsequent encounter; L97.212 Non-pressure chronic ulcer of right calf with fat layer exposed; L97.812 Non-pressure chronic ulcer of other part of right lower leg with fat layer exposed; I87.2 Venous insufficiency (chronic) (peripheral); I89.0 Lymphedema, not elsewhere classified; X58.XXXD Exposure to other specified factors, subsequent encounter
CPT/HCPCS: 11042; 11045; A6250

== ENCOUNTER 2021-02-19 13:14 | Outpatient (CLI) | payer MEDICARE ==
[2021-02-19] MEDS ORDERED: LIDOCAINE (4%) 40 MG/ML TOPICAL SOLN 50 ML BOTTLE TP ONE (14:05)
[2021-02-19] MEDS ORDERED: SODIUM CHLORIDE 0.9% IRR 500 ML BOTTLE IR ONE (14:44)
== END 2021-02-19 13:15 | disposition home or self-care (01) ==
LOC: WOUND 13:14
PROVIDERS: ATTEND Surgery
DX: S81.001D Unspecified open wound, right knee, subsequent encounter (principal); S81.801D Unspecified open wound, right lower leg, subsequent encounter; L97.212 Non-pressure chronic ulcer of right calf with fat layer exposed; L97.812 Non-pressure chronic ulcer of other part of right lower leg with fat layer exposed; I87.2 Venous insufficiency (chronic) (peripheral); I89.0 Lymphedema, not elsewhere classified; X58.XXXD Exposure to other specified factors, subsequent encounter

== ENCOUNTER 2021-02-26 08:54 | Outpatient (CLI) | payer MEDICARE ==
[2021-02-26] MEDS ORDERED: LIDOCAINE (4%) 40 MG/ML TOPICAL SOLN 50 ML BOTTLE TP ONE (09:02)
[2021-02-26] MEDS ORDERED: VITAMIN A & D OINT 56.7 GM TP SCH (10:00)
== END 2021-02-26 08:55 | disposition home or self-care (01) ==
LOC: WOUND 08:54
PROVIDERS: ATTEND Surgery
DX: S81.001D Unspecified open wound, right knee, subsequent encounter (principal); S81.801D Unspecified open wound, right lower leg, subsequent encounter; L97.212 Non-pressure chronic ulcer of right calf with fat layer exposed; L97.812 Non-pressure chronic ulcer of other part of right lower leg with fat layer exposed; I87.2 Venous insufficiency (chronic) (peripheral); I89.0 Lymphedema, not elsewhere classified; X58.XXXD Exposure to other specified factors, subsequent encounter
CPT/HCPCS: 11042; 11045; A6250

== ENCOUNTER 2021-03-12 09:29 | Outpatient (CLI) | payer MEDICARE ==
[2021-03-12] MEDS ORDERED: LIDOCAINE (4%) 40 MG/ML TOPICAL SOLN 50 ML BOTTLE TP SCH (10:00)
== END 2021-03-12 09:30 | disposition home or self-care (01) ==
LOC: WOUND 09:29
PROVIDERS: ATTEND Surgery
DX: S81.001D Unspecified open wound, right knee, subsequent encounter (principal); S81.801D Unspecified open wound, right lower leg, subsequent encounter; L97.812 Non-pressure chronic ulcer of other part of right lower leg with fat layer exposed; L97.212 Non-pressure chronic ulcer of right calf with fat layer exposed; I87.2 Venous insufficiency (chronic) (peripheral); I89.0 Lymphedema, not elsewhere classified; X58.XXXD Exposure to other specified factors, subsequent encounter

== ENCOUNTER 2021-03-26 09:46 | Outpatient (CLI) | payer MEDICARE ==
[2021-03-26] MEDS ORDERED: LIDOCAINE (4%) 40 MG/ML TOPICAL SOLN 50 ML BOTTLE TP ONE (10:00)
== END 2021-03-26 09:47 | disposition home or self-care (01) ==
LOC: WOUND 09:46
PROVIDERS: ATTEND Surgery
DX: S81.001D Unspecified open wound, right knee, subsequent encounter (principal); S81.801D Unspecified open wound, right lower leg, subsequent encounter; L97.812 Non-pressure chronic ulcer of other part of right lower leg with fat layer exposed; L97.212 Non-pressure chronic ulcer of right calf with fat layer exposed; I87.2 Venous insufficiency (chronic) (peripheral); I89.0 Lymphedema, not elsewhere classified; X58.XXXD Exposure to other specified factors, subsequent encounter

== ENCOUNTER 2021-04-06 06:12 | Day surgery (SDC) | payer MEDICARE ==
[~2021-04-06 06:12] MED LIST changes: +BACTERIOSTATIC SODIUM CHLORIDE 0.9% 30 ML VIAL INFILTRATI ONE; -DAKIN'S FULL STRENGTH ONE; +LACTATED RINGERS 1,000 ML IV SCH; +MIDAZOLAM 2 MG/2 ML INJ IV NR; -XYLOCAINE TOPICAL 4% TP ONE
[2021-04-06] MEDS ORDERED: BACTERIOSTATIC SODIUM CHLORIDE 0.9% 30 ML VIAL INFILTRATI ONE (06:32)
--- NOTE | 2021-04-06 06:54 | Anesthesia Consultation ---
Anesthesia Consult and Med Hx Date of service: 04/06/21 - Airway Anesthetic Teeth Evaluation: Good ROM Head & Neck: Adequate Mental/Hyoid Distance: Adequate Mallampati Class: Class II Intubation Access Assessment: Possibly Difficult - Pulmonary Exam CTA: Yes - Cardiac Exam Cardiac Exam: RRR - Pre-Operative Health Status ASA Pre-Surgery Classification: ASA2 Proposed Anesthetic Plan: Local, MAC - Pulmonary Hx Asthma: No Hx Pneumonia: No Hx Sleep Apnea: Yes - Cardiovascular System Hx Hypertension: Yes Hx Peripheral Vascular Disease: Yes (Right leg) - Central Nervous System Hx Psychiatric Problems: No - Other Systems Hx Alcohol Use: Yes (Beer daily) Hx Cancer: No
--- NOTE | 2021-04-06 06:55 | Anesthesia Day of Surgery ---
Anesthesia Day of Surgery - Day of Surgery Patient Examined: Yes Patient H&P Reviewed: Yes Patient is NPO: Yes
[2021-04-06] MEDS ORDERED: LIDOCAINE (1%) 10 MG/1 ML VIAL 20 ML MDV ONE (07:08)
[2021-04-06] MEDS ORDERED: BUPIVACAINE/PF (0.5%) 5 MG/1 ML 30 ML VIAL INFILTRATI ONE ×2 (07:08→07:58)
[2021-04-06] MEDS ORDERED: HYDROcodone/ACETAMINOPHEN 5-325 MG TAB PO PRN (07:24)
[2021-04-06] MEDS ORDERED: fentaNYL 100 MCG/2 ML INJ IV PRN (07:24)
[2021-04-06] MEDS ORDERED: propofoL 200 MG/20 ML VIAL IV ONE ×2 (07:28→07:41)
[2021-04-06] MEDS ORDERED: fentaNYL 100 MCG/2 ML INJ ONE (07:28)
[2021-04-06] MEDS ORDERED: ONDANSETRON 4 MG/2 ML INJ IV PRN (07:30)
[2021-04-06] MEDS ORDERED: dexAMETHasone 20 MG/5 ML VIAL ONE (07:41)
[2021-04-06] MEDS ORDERED: KETOROLAC 30 MG/1 ML INJ ONE (07:41)
[2021-04-06] MEDS ORDERED: ONDANSETRON 4 MG/2 ML INJ ONE (07:41)
[2021-04-06] MEDS ORDERED: SODIUM CHLORIDE 0.9% IRR 1,500 ML BOTTLE IR ONE (07:58)
[2021-04-06] MEDS ORDERED: LIDOCAINE (1%) 10 MG/1 ML VIAL 20 ML MDV INFILTRATI ONE (07:58)
[2021-04-06] MEDS ORDERED: KETAMINE/STERILE WATER 50 MG/ML SYRINGE ONE (08:04)
--- NOTE | 2021-04-06 08:15 | Short Stay Summary ---
Short Stay Documentation Date of service: 04/06/21 - History Principal diagnosis: right leg chronic wounds H&P: obtained from office - Allergies and Medications Current Medications: Allergies piperacillin sodium [From Zosyn] Allergy (Verified 04/04/21 12:07) Itching tazobactam sodium [From Zosyn] Allergy (Verified 04/04/21 12:07) Itching tomato products Allergy (Uncoded 04/26/14 10:48) Hives Home Medications Medication Instructions Recorded Confirmed Last Taken Type Naproxen [Naprosyn] 500 mg PO BID #20 tablet 09/04/16 04/04/21 Unknown Rx amLODIPine [Norvasc] 5 mg PO DAILY 04/04/21 04/04/21 Unknown History Active Medications Hydrocodone Bitart/Acetaminophen (Hydrocodone/Acetaminophen 5-325 Mg Tab) 2 each PO ONCE PRN PRN Reason: Pain, Moderate (4-6) Stop: 04/06/21 20:00 Fentanyl (Fentanyl 100 Mcg/2 Ml Inj) 50 mcg IV Q5MIN PRN PRN Reason: Pain , Severe (7-10) Stop: 04/06/21 23:00 Lactated Ringer's (Lactated Ringers) 1,000 mls @ 100 mls/hr IV DIRECT KATE Stop: 04/06/21 23:59 Midazolam HCl (Midazolam 2 Mg/2 Ml Inj) 2 mg IV PREOP NR Stop: 04/06/21 21:00 Ondansetron HCl (Ondansetron 4 Mg/2 Ml Inj) 4 mg IV ONCE PRN PRN Reason: Nausea And Vomiting - Brief post op/procedure progress note Date of procedure: 04/06/21 Pre-op diagnosis: right leg chronic wounds Post-op diagnosis: same Procedure: excisional debridement of right leg chronic wounds Anesthesia: MAC, local, other (Block) Findings: R lower leg wounds: Proximal: 3x3x0.2 cm Mid: [id number] Distal (ankle): 2x1x0.2 cm Surgeon: VITALIY JERNIGAN Estimated blood loss: minimal Pathology: list (wound cultures and tissue for pathology) Specimen disposition: to lab Condition: stable - Hospital course Hospital course: Pt observed in PACU and discharged to home in stable condition when criteria met - Disposition Condition at discharge: Good Disposition: DC- TO HOME OR SELFCARE Short Stay Discharge Plan Activity: other (No driving if taking prescription pain medications) Diet: regular Wound: other (Change dressing tomorrow. Remove all dressing materials. Cleanse wound with wound cleanser. Pack each wound with alginate dressing. Cover with dry gauze, ABD pads, wrap with kerlix and apply tubogrip stocking. ) Additional Instructions: Follow up in wound clinic on 04/09/21 @930am Follow up with: [facility] MD JANINE [Primary Care Provider] - 7 Days Prescriptions: oxyCODONE /ACETAMINOPHEN [Percocet 5/325] 1 tab PO Q6HR PRN #30 tablet PRN Reason: Pain , Severe (7-10)
[2021-04-06] MEDS ORDERED: BUPIVACAINE/PF (0.25%) 2.5 MG/ML 30 ML VIAL INFILTRATI ONE (08:17)
[2021-04-06] MEDS ORDERED: MIDAZOLAM 2 MG/2 ML INJ IV NR (08:22)
[2021-04-06] MEDS ORDERED: LIDOCAINE (2%) 20 MG/1 ML VIAL 20 ML MDV INFILTRATI ONE (08:25)
--- NOTE | 2021-04-06 09:41 | Post Anesthesia Evaluation ---
- Post Anesthesia Evaluation Patient Participated: Yes Airway Patent: Yes Stable Respiratory Function: Yes Nausea/Vomiting: No Temp > 96.8F: Yes Pain Manageable: Yes Adequeate Hydration: Yes Anesthesia Complications: No Block Receding Appropriately: Yes (Adductor+popliteal blocks placed in PACU for analgesia w/ good effect) Other Comments: Advised patient of possibly motor weakness in LE 2/2 nerve block and that he should walk only with assistance until full strength and sensation has returned. Verbalized understanding.
[2021-04-06 09:48] VITALS: BP 123/77
--- NOTE | 2021-04-06 17:34 | Operative Report ---
Operative Report Operative Report: Date of procedure: 04/06/21 Pre-op diagnosis: right leg chronic wounds Post-op diagnosis: same Procedure: excisional debridement of right leg chronic wounds Anesthesia: MAC, local, other (Block) Findings: R lower leg wounds: Proximal: 3x3x0.2 cm Mid: [id number] Distal (ankle): 2x1x0.2 cm Surgeon: VITALIY JERNIGAN Estimated blood loss: minimal Pathology: list (wound cultures and tissue for pathology) Specimen disposition: to lab Condition: stable Hospital course: Pt observed in PACU and discharged to home in stable condition when criteria met HPI indication: Patient is a 35-year-old male with chronic right lower extremity swelling, right lower extremity wounds who is followed in the wound care clinic. Patient is unable to tolerate aggressive debridement at the bedside therefore it was recommended that he undergo debridement in the operating room due to worsening wounds. All risks, benefits, alternatives to surgery were discussed with the patient and questions answered. Consent was obtained. Procedure in detail: The patient was identified in the preoperative area and the operative site marked. He was taken to the operating room and placed on the operating room table in supine position. After anesthesia was induced the right leg was prepped and draped in usual sterile fashion and a timeout performed. Local anesthetic was infiltrated into the region around the wounds. The patient had 3 open wounds present. The first wound was located just below the knee, the second in the mid lower leg and the third at the ankle. All 3 wounds were debrided first using a curette. Excisional debridement was carried out through the skin and subcutaneous level and slough, devitalized tissue, necrotic tissue was removed. The mid calf wound was additionally debrided with electrocautery to remove adherent hypergranulation tissue. Once all wounds were debrided - the measurements were as follows: Proximal: 3x3x0.2 cm, Mid: [id number], Distal (ankle): 2x1x0.2 cm. All wounds were checked for hemostasis and this was achieved with pressure. The wounds were packed with one piece of saline moistened gauze each. This was covered with dry gauze, ABD pads and wrapped with kerlix. SCOTT wrap was loosely applied. Patient tolerated the procedure well. All sharps, instruments, and sponge counts were correct x2. Patient was taken to PACU in stable condition and RLE nerve block performed by anesthesia provider.
== END 2021-04-06 09:55 | disposition home or self-care (01) ==
LOC: OR 06:12
PROVIDERS: ATTEND Surgery
DX: S91.001A Unspecified open wound, right ankle, initial encounter (principal); L98.498 Non-pressure chronic ulcer of skin of other sites with other specified severity; Z20.822 Contact with and (suspected) exposure to COVID-19; Z87.891 Personal history of nicotine dependence; X58.XXXA Exposure to other specified factors, initial encounter; Y93.89 Activity, other specified; Y92.89 Other specified places as the place of occurrence of the external cause; Y99.8 Other external cause status
CPT/HCPCS: 11042; 11045; 64447; 87076; 87116; 87186; 88304; J1100; J1885; J2250; J2405; J2704; J3010; J3490; J7120; U0003; 88305

== ENCOUNTER 2021-04-09 09:47 | Outpatient (CLI) | payer MEDICARE ==
[2021-04-09] MEDS ORDERED: LIDOCAINE (4%) 40 MG/ML TOPICAL SOLN 50 ML BOTTLE TP ONE (10:48)
== END 2021-04-09 09:48 | disposition home or self-care (01) ==
LOC: WOUND 09:47
PROVIDERS: ATTEND Surgery
DX: S81.001D Unspecified open wound, right knee, subsequent encounter (principal); S81.801D Unspecified open wound, right lower leg, subsequent encounter; L97.812 Non-pressure chronic ulcer of other part of right lower leg with fat layer exposed; L97.212 Non-pressure chronic ulcer of right calf with fat layer exposed; I87.2 Venous insufficiency (chronic) (peripheral); I89.0 Lymphedema, not elsewhere classified; X58.XXXD Exposure to other specified factors, subsequent encounter

== ENCOUNTER 2021-06-04 13:16 | Outpatient (CLI) | payer MEDICARE ==
[2021-06-04] MEDS ORDERED: LIDOCAINE (4%) 40 MG/ML TOPICAL SOLN 50 ML BOTTLE TP ONE (13:49)
[2021-06-04] MEDS ORDERED: VITAMIN A & D OINT 56.7 GM TP SCH (16:00)
== END 2021-06-04 13:17 | disposition home or self-care (01) ==
LOC: WOUND 13:16
PROVIDERS: ATTEND Surgery
DX: S81.001D Unspecified open wound, right knee, subsequent encounter (principal); S81.801D Unspecified open wound, right lower leg, subsequent encounter; L97.812 Non-pressure chronic ulcer of other part of right lower leg with fat layer exposed; L97.212 Non-pressure chronic ulcer of right calf with fat layer exposed; I87.2 Venous insufficiency (chronic) (peripheral); I89.0 Lymphedema, not elsewhere classified; X58.XXXD Exposure to other specified factors, subsequent encounter
CPT/HCPCS: 11042; 11045; A6250

== ENCOUNTER 2021-06-25 08:58 | Outpatient (CLI) | payer MEDICARE ==
[2021-06-25] MEDS ORDERED: LIDOCAINE (4%) 40 MG/ML TOPICAL SOLN 50 ML BOTTLE TP ONE (09:13)
== END 2021-06-25 08:59 | disposition home or self-care (01) ==
LOC: WOUND 08:58
PROVIDERS: ATTEND Surgery
DX: S81.001D Unspecified open wound, right knee, subsequent encounter (principal); S81.801D Unspecified open wound, right lower leg, subsequent encounter; L97.812 Non-pressure chronic ulcer of other part of right lower leg with fat layer exposed; L97.212 Non-pressure chronic ulcer of right calf with fat layer exposed; I87.2 Venous insufficiency (chronic) (peripheral); I89.0 Lymphedema, not elsewhere classified; X58.XXXD Exposure to other specified factors, subsequent encounter

== ENCOUNTER 2021-08-06 10:14 | Outpatient (CLI) | payer MEDICARE ==
[2021-08-06] MEDS ORDERED: LIDOCAINE (4%) 40 MG/ML TOPICAL SOLN 50 ML BOTTLE TP ONE (12:40)
== END 2021-08-06 10:15 | disposition home or self-care (01) ==
LOC: WOUND 10:14
PROVIDERS: ATTEND Surgery
DX: S81.001D Unspecified open wound, right knee, subsequent encounter (principal); S81.801D Unspecified open wound, right lower leg, subsequent encounter; L97.812 Non-pressure chronic ulcer of other part of right lower leg with fat layer exposed; L97.212 Non-pressure chronic ulcer of right calf with fat layer exposed; I87.2 Venous insufficiency (chronic) (peripheral); I89.0 Lymphedema, not elsewhere classified; X58.XXXD Exposure to other specified factors, subsequent encounter
CPT/HCPCS: 97602

== ENCOUNTER 2021-09-03 09:23 | Outpatient (CLI) | payer MEDICARE ==
[2021-09-03] MEDS ORDERED: LIDOCAINE (4%) 40 MG/ML TOPICAL SOLN 50 ML BOTTLE TP ONE (09:47)
== END 2021-09-03 09:24 | disposition home or self-care (01) ==
LOC: WOUND 09:23
PROVIDERS: ATTEND Surgery
DX: S81.001D Unspecified open wound, right knee, subsequent encounter (principal); S81.801D Unspecified open wound, right lower leg, subsequent encounter; L97.812 Non-pressure chronic ulcer of other part of right lower leg with fat layer exposed; L97.212 Non-pressure chronic ulcer of right calf with fat layer exposed; I87.2 Venous insufficiency (chronic) (peripheral); I89.0 Lymphedema, not elsewhere classified; X58.XXXD Exposure to other specified factors, subsequent encounter

== ENCOUNTER 2021-09-17 10:45 | Outpatient (CLI) | payer MEDICARE ==
[2021-09-17] MEDS ORDERED: LIDOCAINE (4%) 40 MG/ML TOPICAL SOLN 50 ML BOTTLE TP SCH (11:00)
== END 2021-09-17 10:46 | disposition home or self-care (01) ==
LOC: WOUND 10:45
PROVIDERS: ATTEND Surgery
DX: S81.001D Unspecified open wound, right knee, subsequent encounter (principal); S81.801D Unspecified open wound, right lower leg, subsequent encounter; L97.812 Non-pressure chronic ulcer of other part of right lower leg with fat layer exposed; L97.212 Non-pressure chronic ulcer of right calf with fat layer exposed; I87.2 Venous insufficiency (chronic) (peripheral); I89.0 Lymphedema, not elsewhere classified; X58.XXXD Exposure to other specified factors, subsequent encounter

== ENCOUNTER 2021-11-05 08:33 | Outpatient (CLI) | payer MEDICARE ==
[2021-11-05] MEDS ORDERED: LIDOCAINE (4%) 40 MG/ML TOPICAL SOLN 50 ML BOTTLE TP ONE (09:05)
== END 2021-11-05 08:34 | disposition home or self-care (01) ==
LOC: WOUND 08:33
PROVIDERS: ATTEND Surgery
DX: S81.001D Unspecified open wound, right knee, subsequent encounter (principal); S81.801D Unspecified open wound, right lower leg, subsequent encounter; L97.812 Non-pressure chronic ulcer of other part of right lower leg with fat layer exposed; L97.212 Non-pressure chronic ulcer of right calf with fat layer exposed; I87.2 Venous insufficiency (chronic) (peripheral); I89.0 Lymphedema, not elsewhere classified; X58.XXXD Exposure to other specified factors, subsequent encounter

== ENCOUNTER 2021-12-10 09:09 | Outpatient (CLI) | payer MEDICARE ==
[2021-12-10] MEDS ORDERED: LIDOCAINE (4%) 40 MG/ML TOPICAL SOLN 50 ML BOTTLE TP ONE (10:07)
== END 2021-12-10 09:10 | disposition home or self-care (01) ==
LOC: WOUND 09:09
PROVIDERS: ATTEND Surgery
DX: S81.001D Unspecified open wound, right knee, subsequent encounter (principal); S81.801D Unspecified open wound, right lower leg, subsequent encounter; L97.812 Non-pressure chronic ulcer of other part of right lower leg with fat layer exposed; L97.212 Non-pressure chronic ulcer of right calf with fat layer exposed; I87.2 Venous insufficiency (chronic) (peripheral); I89.0 Lymphedema, not elsewhere classified; Z79.899 Other long term (current) drug therapy; X58.XXXD Exposure to other specified factors, subsequent encounter

== ENCOUNTER 2022-01-07 11:02 | Outpatient (CLI) | payer MEDICARE ==
[2022-01-07] MEDS ORDERED: LIDOCAINE (4%) 40 MG/ML TOPICAL SOLN 50 ML BOTTLE TP ONE (11:16)
== END 2022-01-07 11:03 | disposition home or self-care (01) ==
LOC: WOUND 11:02
PROVIDERS: ATTEND Surgery
DX: S81.001D Unspecified open wound, right knee, subsequent encounter (principal); L97.812 Non-pressure chronic ulcer of other part of right lower leg with fat layer exposed; L97.212 Non-pressure chronic ulcer of right calf with fat layer exposed; I87.2 Venous insufficiency (chronic) (peripheral); I89.0 Lymphedema, not elsewhere classified; Z79.899 Other long term (current) drug therapy; X58.XXXD Exposure to other specified factors, subsequent encounter

== ENCOUNTER 2022-01-21 13:59 | Outpatient (CLI) | payer MEDICARE | END 2022-01-21 14:00 | disposition home or self-care (01) | LOC: WOUND 13:59 | PROVIDERS: ATTEND Surgery | DX: S81.801D Unspecified open wound, right lower leg, subsequent encounter (principal); S81.001D Unspecified open wound, right knee, subsequent encounter; L97.212 Non-pressure chronic ulcer of right calf with fat layer exposed; I87.2 Venous insufficiency (chronic) (peripheral); Z79.899 Other long term (current) drug therapy; Z98.890 Other specified postprocedural states; X58.XXXD Exposure to other specified factors, subsequent encounter ==

== ENCOUNTER 2022-01-28 13:57 | Outpatient (CLI) | payer MEDICARE ==
[2022-01-28] MEDS ORDERED: LIDOCAINE (4%) 40 MG/ML TOPICAL SOLN 50 ML BOTTLE TP ONE (14:16)
== END 2022-01-28 13:58 | disposition home or self-care (01) ==
LOC: WOUND 13:57
PROVIDERS: ATTEND Surgery
DX: S81.801D Unspecified open wound, right lower leg, subsequent encounter (principal); S81.001D Unspecified open wound, right knee, subsequent encounter; L97.212 Non-pressure chronic ulcer of right calf with fat layer exposed; I87.2 Venous insufficiency (chronic) (peripheral); Z79.899 Other long term (current) drug therapy; Z98.890 Other specified postprocedural states; X58.XXXD Exposure to other specified factors, subsequent encounter
CPT/HCPCS: 11042; 15273; 15274; Q4121

== ENCOUNTER 2022-02-11 10:51 | Outpatient (CLI) | payer MEDICARE ==
[2022-02-11] MEDS ORDERED: LIDOCAINE (4%) 40 MG/ML TOPICAL SOLN 50 ML BOTTLE TP ONE (13:05)
[2022-02-11] MEDS ORDERED: SILVER NITRATE APPLICATOR 1 EA TP ONE ×2 (13:06→18:34)
== END 2022-02-11 10:52 | disposition home or self-care (01) ==
LOC: WOUND 10:51
PROVIDERS: ATTEND Surgery
DX: S81.801D Unspecified open wound, right lower leg, subsequent encounter (principal); S81.001D Unspecified open wound, right knee, subsequent encounter; L97.212 Non-pressure chronic ulcer of right calf with fat layer exposed; I87.2 Venous insufficiency (chronic) (peripheral); Z79.899 Other long term (current) drug therapy; Z98.890 Other specified postprocedural states; X58.XXXD Exposure to other specified factors, subsequent encounter

== ENCOUNTER 2022-03-11 11:10 | Outpatient (CLI) | payer MEDICARE ==
[2022-03-11] MEDS ORDERED: LIDOCAINE (4%) 40 MG/ML TOPICAL SOLN 50 ML BOTTLE TP ONE (12:00)
== END 2022-03-11 11:11 | disposition home or self-care (01) ==
LOC: WOUND 11:10
PROVIDERS: ATTEND Surgery
DX: S81.801D Unspecified open wound, right lower leg, subsequent encounter (principal); S81.001D Unspecified open wound, right knee, subsequent encounter; L97.212 Non-pressure chronic ulcer of right calf with fat layer exposed; I87.2 Venous insufficiency (chronic) (peripheral); Z79.899 Other long term (current) drug therapy; Z98.890 Other specified postprocedural states; X58.XXXD Exposure to other specified factors, subsequent encounter

== ENCOUNTER 2022-04-01 10:45 | Outpatient (CLI) | payer MEDICARE ==
[2022-04-01] MEDS ORDERED: LIDOCAINE (4%) 40 MG/ML TOPICAL SOLN 50 ML BOTTLE TP ONE (11:07)
[2022-04-01] MEDS ORDERED: SODIUM CHLORIDE 0.9% IRR 1,000 ML BOTTLE IR ONE (11:57)
[2022-04-02] MEDS ORDERED: SODIUM CHLORIDE 0.9% IRR 1,000 ML BOTTLE IR NR (09:00)
== END 2022-04-01 10:46 | disposition home or self-care (01) ==
LOC: WOUND 10:45
PROVIDERS: ATTEND Surgery
DX: S81.801D Unspecified open wound, right lower leg, subsequent encounter (principal); S81.001D Unspecified open wound, right knee, subsequent encounter; L97.212 Non-pressure chronic ulcer of right calf with fat layer exposed; I87.2 Venous insufficiency (chronic) (peripheral); Z79.899 Other long term (current) drug therapy; Z98.890 Other specified postprocedural states; X58.XXXD Exposure to other specified factors, subsequent encounter
CPT/HCPCS: 11042; 15273; 15274; Q4121

== ENCOUNTER 2022-04-08 15:52 | Outpatient (CLI) | payer MEDICARE ==
[2022-04-08] MEDS ORDERED: LIDOCAINE (4%) 40 MG/ML TOPICAL SOLN 50 ML BOTTLE TP ONE (16:11)
[2022-04-08] MEDS ORDERED: SODIUM CHLORIDE 0.9% IRR 1,000 ML BOTTLE IR ONE ×2 (16:12→16:27)
[2022-04-08] MEDS ORDERED: SODIUM CHLORIDE 0.9% 1000 ML 1,000 ML IV SCH (17:00)
== END 2022-04-08 15:53 | disposition home or self-care (01) ==
LOC: WOUND 15:52
PROVIDERS: ATTEND Surgery
DX: S81.801D Unspecified open wound, right lower leg, subsequent encounter (principal); S81.001D Unspecified open wound, right knee, subsequent encounter; L97.212 Non-pressure chronic ulcer of right calf with fat layer exposed; I87.2 Venous insufficiency (chronic) (peripheral); Z79.899 Other long term (current) drug therapy; Z98.890 Other specified postprocedural states; X58.XXXD Exposure to other specified factors, subsequent encounter
CPT/HCPCS: 11042; 11045; J7030

== ENCOUNTER 2022-05-06 09:51 | Outpatient (CLI) | payer MEDICARE ==
[2022-05-06] MEDS ORDERED: LIDOCAINE (4%) 40 MG/ML TOPICAL SOLN 50 ML BOTTLE TP ONE (10:19)
[2022-05-06] MEDS ORDERED: SODIUM CHLORIDE IRRIG SOLUTION 1,000 ML BAG IR ONE (10:20)
== END 2022-05-06 09:52 | disposition home or self-care (01) ==
LOC: WOUND 09:51
PROVIDERS: ATTEND Surgery
DX: S81.801D Unspecified open wound, right lower leg, subsequent encounter (principal); S81.001D Unspecified open wound, right knee, subsequent encounter; L97.212 Non-pressure chronic ulcer of right calf with fat layer exposed; I87.2 Venous insufficiency (chronic) (peripheral); Z79.899 Other long term (current) drug therapy; Z98.890 Other specified postprocedural states; X58.XXXD Exposure to other specified factors, subsequent encounter
CPT/HCPCS: 11042; 15271; 15272; Q4121

== ENCOUNTER 2022-05-13 09:19 | Outpatient (CLI) | payer MEDICARE ==
[2022-05-13] MEDS ORDERED: LIDOCAINE (4%) 40 MG/ML TOPICAL SOLN 50 ML BOTTLE TP NR ×2 (09:30→11:09)
[2022-05-13] MEDS ORDERED: SODIUM CHLORIDE 0.9% 250ML 250 ML IV NR (11:09)
== END 2022-05-13 09:20 | disposition home or self-care (01) ==
LOC: WOUND 09:19
PROVIDERS: ATTEND Surgery
DX: S81.801D Unspecified open wound, right lower leg, subsequent encounter (principal); S81.001D Unspecified open wound, right knee, subsequent encounter; L97.212 Non-pressure chronic ulcer of right calf with fat layer exposed; I87.2 Venous insufficiency (chronic) (peripheral); Z79.899 Other long term (current) drug therapy; Z98.890 Other specified postprocedural states; X58.XXXD Exposure to other specified factors, subsequent encounter
CPT/HCPCS: 11042; 15271; 15272; J7050; Q4121

== ENCOUNTER 2022-07-15 10:09 | Outpatient (CLI) | payer MEDICARE ==
[2022-07-15] MEDS ORDERED: LIDOCAINE (4%) 40 MG/ML TOPICAL SOLN 50 ML BOTTLE TP ONE (11:00)
== END 2022-07-15 10:10 | disposition home or self-care (01) ==
LOC: WOUND 10:09
PROVIDERS: ATTEND Surgery
DX: S81.801D Unspecified open wound, right lower leg, subsequent encounter (principal); S81.001D Unspecified open wound, right knee, subsequent encounter; S81.801A Unspecified open wound, right lower leg, initial encounter; L97.212 Non-pressure chronic ulcer of right calf with fat layer exposed; I87.2 Venous insufficiency (chronic) (peripheral); Z79.899 Other long term (current) drug therapy; Z98.890 Other specified postprocedural states; X58.XXXD Exposure to other specified factors, subsequent encounter; X58.XXXA Exposure to other specified factors, initial encounter; Y93.89 Activity, other specified; Y92.89 Other specified places as the place of occurrence of the external cause; Y99.8 Other external cause status

== ENCOUNTER 2022-08-18 02:35 | Emergency (ER) | payer MEDICARE ==
[2022-08-18] MEDS ORDERED: SODIUM CHLORIDE 0.9% IRR 500 ML BOTTLE IR ONE (07:49)
[2022-08-18] MEDS ORDERED: TETANUS,DIPH,PERTUSS(ACELL) VACCINE 0.5 ML SYRINGE IM ONE (08:00)
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
[2022-08-18] MEDS ORDERED: traMADol 50 MG TAB PO ONE (09:10)
[2022-08-18 09:27] VITALS: BP 135/78
== END 2022-08-18 09:25 | disposition home or self-care (01) ==
LOC: ED 02:35
DX: S66.390A Other injury of extensor muscle, fascia and tendon of right index finger at wrist and hand level, initial encounter (principal); I10 Essential (primary) hypertension; G43.909 Migraine, unspecified, not intractable, without status migrainosus; Z88.8 Allergy status to other drugs, medicaments and biological substances; Z79.899 Other long term (current) drug therapy; Z91.018 Allergy to other foods; W26.8XXA Contact with other sharp object(s), not elsewhere classified, initial encounter; Y93.89 Activity, other specified; Y92.89 Other specified places as the place of occurrence of the external cause; Y99.8 Other external cause status
CPT/HCPCS: 90471; 90715; 99282